=== PATIENT | female | born 1950 | race Two or more races ===

== ENCOUNTER 2024-03-23 11:04 | Inpatient (IN) | payer OTHER, MEDICAID ==
[~2024-03-23] VITALS: Ht 157.5 cm; Wt 70.6 kg
[2024-03-23 12:05] VITALS: PULSE 91; RESP 17; O2SAT 100
[2024-03-23 12:19] LABS: Basophils # (auto) 0 10 ^3/uL (0-0.2); Basophils % (auto) 0.3 % (0.0-2.0); Eosinophils # (auto) 0.1 10 ^3/uL (0-0.8); Hematocrit 32.1 % (36.0-46.0); Hemoglobin 10.6 g/dL (12.2-16.2); Lymphocytes # (auto) 1.6 10 ^3/uL (0.4-5.4); Lymphocytes % (auto) 29.5 % (10.0-50.0); Mean Corpuscular Hemoglobin 27.9 pg (28.0-32.0); Mean Corpuscular Volume 84.6 fL (80.0-100.0); Monocytes # (auto) 0.6 10 ^3/uL (0-1.3); Monocytes % (auto) 11.4 % (0.0-12.0); Neutrophils % (auto) 56.8 % (37.0-80.0); Platelet Count (auto) 209 10^3/uL (140-450); White Blood Cell 5.3 10^3/uL (4.4-10.8)
[2024-03-23] MEDS: SODIUM CHLORIDE 0.9% 1,000 ML IV ONE (12:23)
[2024-03-23 12:29] LABS: Anion Gap 5 (5-15); Carbon Dioxide 28 mmol/L (20-31); Chloride 107 mmol/L (98-107); Potassium 3.4 mmol/L (3.5-5.1); Sodium 140 mmol/L (136-145)
[2024-03-23 12:30] LABS: Calcium 9.3 mg/dL (8.7-10.4)
[2024-03-23 12:35] LABS: BUN/Creatinine Ratio 27.2 (10.0-20.0); Blood Urea Nitrogen 22 mg/dL (9-23); Glucose 101 mg/dL (74-106)
[2024-03-23 12:58] LABS: Erythrocyte Sedimentation Rate 38 mm/hr (0-20)
[2024-03-23] MEDS: CLINDAMYCIN 600MG IV 50 ML IV ONE (14:06)
[2024-03-23] MEDS ORDERED: ACETAMINOPHEN 325 MG TAB PO PRN (17:45)
[2024-03-23] MEDS ORDERED: DOCUSATE SOD 100 MG CAP PO PRN (17:45)
[2024-03-23] MEDS ORDERED: DEXTROSE (50%) 50ML SYRG IV PRN (17:45)
[2024-03-23] MEDS ORDERED: VANCOMYCIN PER PHARMACY 0 MG IV SCH (18:00)
[2024-03-23] MEDS: PIPERACILLIN-TAZOB 3.375GM 100 ML IV SCH (18:59)
[2024-03-23] MEDS: VANCOMYCIN 1.5GM/300ML 300 ML IV ONE (19:59)
[2024-03-23] MEDS: SODIUM CHLOR 0.9% PF (SALINE LOCK) 10ML VIAL/SYR IV SCH (22:00)
[2024-03-23] MEDS: HYDROcodone-ACET 5/325MG TAB PO PRN (23:18)
[2024-03-23] MEDS: ACCU-CHEK COMFORT CURVE STRIP VI SCH (23:26)
[2024-03-23] MEDS: InsuLIN REG 1unit/0.01ml Soln (100units/ml) SC SCH (23:26)
[2024-03-23] MEDS ORDERED: cloNIDine HCL 0.1 MG TAB PO ONE (23:45)
[2024-03-24] VITALS (7 sets, daily range): BP systolic 124–144; BP diastolic 59–111; PULSE 69–83; RESP 16–20; TEMP 97.5–98.2; O2SAT 93–100
[2024-03-24] MEDS: MELATONIN 5 MG TAB PO ONE ×2 (00:41→22:02)
[2024-03-24] MEDS ORDERED: TEMA15CA PO (01:47)
[2024-03-24] MEDS ORDERED: CHOL20007 PO (01:47)
[2024-03-24] MEDS ORDERED: FAMO20TA10 PO (01:47)
[2024-03-24] MEDS ORDERED: FERR325T20 PO (01:47)
[2024-03-24] MEDS ORDERED: ATOR20TA50 PO (01:47)
[2024-03-24] MEDS ORDERED: HYDR-4902 PO (01:47)
[2024-03-24] MEDS ORDERED: LOSA-534 PO (01:47)
[2024-03-24] MEDS ORDERED: GLIP5TAB21 PO (01:47)
[2024-03-24] MEDS ORDERED: LEVO25TA6 PO (01:47)
[2024-03-24] MEDS ORDERED: CYCL-838 PO (01:47)
[2024-03-24] MEDS ORDERED: ASCO500T11 PO (01:47)
[2024-03-24 07:35] LABS: Basophils # (auto) 0 10 ^3/uL (0-0.2); Basophils % (auto) 0.4 % (0.0-2.0); Eosinophils # (auto) 0.2 10 ^3/uL (0-0.8); Eosinophils % (auto) 3.1 % (0.0-7.0); Hemoglobin 9.5 g/dL (12.2-16.2); Lymphocytes # (auto) 1.6 10 ^3/uL (0.4-5.4); Lymphocytes % (auto) 28.5 % (10.0-50.0); Mean Corpuscular Hemoglobin 27.8 pg (28.0-32.0); Mean Corpuscular Hgb Conc. 32.9 g/dL (32.0-36.0); Mean Corpuscular Volume 84.4 fL (80.0-100.0); Monocytes # (auto) 0.5 10 ^3/uL (0-1.3); Monocytes % (auto) 9.4 % (0.0-12.0); Neutrophils # (auto) 3.3 10 ^3/uL (1.6-8.6); Neutrophils % (auto) 58.6 % (37.0-80.0); Nucleated Red Blood Cells % 0.1 %; Platelet Count (auto) 183 10^3/uL (140-450); Red Blood Cells 3.44 10^6/uL (4.0-5.20); Red Cell Distribution Width 14.9 % (11.8-14.3); White Blood Cell 5.6 10^3/uL (4.4-10.8)
[2024-03-24 07:48] LABS: Alanine Aminotransferase 11 U/L (7-40); Albumin 3.4 g/dL (3.2-4.8); Alkaline Phosphatase 82 U/L (46-116); Anion Gap 5 (5-15); Aspartate Aminotransferase 10 U/L (13-40); BUN/Creatinine Ratio 18.5 (10.0-20.0); Bilirubin, Total 0.2 mg/dL (0.2-1.0); Blood Urea Nitrogen 15 mg/dL (9-23); Calcium 8.8 mg/dL (8.7-10.4); Carbon Dioxide 28 mmol/L (20-31); Chloride 110 mmol/L (98-107); Glucose 110 mg/dL (74-106); Potassium 3.1 mmol/L (3.5-5.1); Sodium 143 mmol/L (136-145); Total Protein 6.2 g/dL (5.7-8.2)
[2024-03-24] MEDS: ENOXAPARIN SOD 40 MG/0.4 ML SYRINGE SC SCH (09:36)
[2024-03-24] MEDS: diphenhdrAMINE HCL 50 MG/1 ML VL IV ONE (11:31)
[2024-03-24] MEDS: POTASSIUM CHL 20 Meq TABLET PO ONE (11:31)
[2024-03-24] MEDS: VANCOMYCIN 1.25GM/250ML 250 ML IV ONE (14:37)
[2024-03-25 01:00] VITALS: BP 151/66; PULSE 69; RESP 20; TEMP 97.6; O2SAT 100
[2024-03-25] MEDS: ONDANSETRON HCL 4 MG/2 ML VIAL IV PRN (01:05)
[2024-03-25] MEDS: HYDROmorphone HCL 2 MG/ML VL/or syr IV PRN (01:06)
[2024-03-25 05:00] VITALS: BP 136/67; PULSE 62; RESP 20; TEMP 97.7; O2SAT 98
[2024-03-25 06:52] LABS: Basophils # (auto) 0 10 ^3/uL (0-0.2); Basophils % (auto) 0.5 % (0.0-2.0); Eosinophils # (auto) 0.3 10 ^3/uL (0-0.8); Eosinophils % (auto) 4.5 % (0.0-7.0); Hematocrit 31.3 % (36.0-46.0); Hemoglobin 10.5 g/dL (12.2-16.2); Lymphocytes # (auto) 2.1 10 ^3/uL (0.4-5.4); Lymphocytes % (auto) 37.1 % (10.0-50.0); Mean Corpuscular Hemoglobin 28.4 pg (28.0-32.0); Mean Corpuscular Hgb Conc. 33.5 g/dL (32.0-36.0); Mean Corpuscular Volume 84.7 fL (80.0-100.0); Monocytes # (auto) 0.4 10 ^3/uL (0-1.3); Neutrophils # (auto) 2.8 10 ^3/uL (1.6-8.6); Neutrophils % (auto) 49.9 % (37.0-80.0); Platelet Count (auto) 210 10^3/uL (140-450); Red Blood Cells 3.69 10^6/uL (4.0-5.20); Red Cell Distribution Width 15.4 % (11.8-14.3); White Blood Cell 5.6 10^3/uL (4.4-10.8)
[2024-03-25 06:53] LABS: Alanine Aminotransferase 11 U/L (7-40); Albumin 3.8 g/dL (3.2-4.8); Alkaline Phosphatase 83 U/L (46-116); Anion Gap 3 (5-15); Aspartate Aminotransferase 11 U/L (13-40); BUN/Creatinine Ratio 11.1 (10.0-20.0); Blood Urea Nitrogen 10 mg/dL (9-23); Calcium 9.5 mg/dL (8.7-10.4); Carbon Dioxide 29 mmol/L (20-31); Chloride 108 mmol/L (98-107); Glucose 97 mg/dL (74-106); Potassium 3.7 mmol/L (3.5-5.1); Sodium 140 mmol/L (136-145)
[2024-03-25 06:54] LABS: Bilirubin, Total 0.2 mg/dL (0.2-1.0)
[2024-03-25 09:00] VITALS: BP 141/73; PULSE 66; RESP 18; TEMP 98; O2SAT 96
[2024-03-25 13:00] VITALS: BP 148/44; PULSE 67; RESP 16; TEMP 97.8; O2SAT 95
[2024-03-25] MEDS ORDERED: CLIN-203 PO (14:51)
[2024-03-25] MEDS ORDERED: traZODone HCL 50 MG TAB PO PRN (15:15)
[2024-03-25] MEDS: VANCOMYCIN 1.25GM/250ML 250 ML IV SCH (15:35)
[2024-03-25 16:07] VITALS: BP 148/44; PULSE 67; RESP 16; TEMP 97.8; O2SAT 95
[2024-03-25 16:51] VITALS: BP 149/56; PULSE 58; RESP 18; TEMP 97.9; O2SAT 100
[2024-03-26] MEDS ORDERED: VENLAFAXINE HCL 37.5MG TABLET PO SCH (10:00)
== END 2024-03-25 18:30 | disposition home or self-care (01) | DRG 603 ==
LOC: ER 11:14 → OVERFLOW 17:31 → EAST 23:19
PROVIDERS: ADMIT Internal Medicine; ATTEND Student in an Organized Health Care Education/Training Program
PROC: 05HD33Z Insertion of Infusion Device into Right Cephalic Vein, Percutaneous Approach (ICD-10-PCS; principal; 2024-03-23)
PROC: B54MZZA Ultrasonography of Right Upper Extremity Veins, Guidance (ICD-10-PCS; 2024-03-23)
DX: L03.115 Cellulitis of right lower limb (principal); Z59.00 Homelessness unspecified; E11.621 Type 2 diabetes mellitus with foot ulcer; I10 Essential (primary) hypertension; L97.519 Non-pressure chronic ulcer of other part of right foot with unspecified severity; Z91.199 Patient's noncompliance with other medical treatment and regimen due to unspecified reason
CPT/HCPCS: 36415; 73700; 73718; 80048; 80053; 80202; 82962; 83605; 85025; 85652; 87040; G0378; J2405; J2543; J3490